=== PATIENT | female | born 1990 | race Caucasian/White ===

== ENCOUNTER → 2018-07-28 | Outpatient (CLI) | payer MEDICAID ==
--- NOTE | 2018-07-28 10:43 | WOMENS IMAGING REPORT ---
EXAM DESCRIPTION: U/S ABDOMEN TOTAL COMPLETED DATE/TIME: 07/28/2018 8:33 am REASON FOR STUDY: R10.11 RIGHT UPPER QUADRANT PAIN R10.11 RIGHT UPPER QUADRANT PAIN COMPARISON: None. TECHNIQUE: Dynamic and static grayscale images acquired of the abdomen and recorded on PACS. Additio nal selected color Doppler and spectral images recorded. Note: Study does not meet criteria for complete doppler/duplex scan LIMITATIONS: None. FINDINGS: PANCREAS: Poorly visualized. LIVER: Increased echogenicity with decreased visualization of the portal triads. No focal lesions. LIVER VASCULATURE: Normal directional flow of the main portal vein and hepatic veins. GALLBLADDER: No stones. Normal wall thickness. No pericholecystic fluid. ULTRASOUND-DETECTED KENNEDY'S SIGN: Negative. INTRAHEPATIC DUCTS AND COMMON DUCT: CBD and intrahepatic ducts normal caliber. No filling defects. INFERIOR VENA CAVA: Visualized aspects are unremarkable. AORTA: Not well visualized. Visualized aspects are unremarkable. RIGHT KIDNEY: Normal size. Normal echogenicity. No solid or suspicious masses. No hydronephros is. No calcifications. LEFT KIDNEY: Normal in size measuring 10.3 cm. Normal echogenicity. No solid or suspicious rhianna s. No hydronephrosis. No calcifications. SPLEEN: Normal in size measuring 8.3 cm. No solid masses. PERITONEAL AND PLEURAL SPACES: No ascites or effusions. OTHER: No other significant finding. IMPRESSION: Hepatic steatosis. Otherwise, unremarkable abdominal ultrasound. TECHNICAL DOCUMENTATION: JOB ID: [id number] [employer]- All Rights Reserved Reading location - IP/workstation name: [email or web address]
== END ==
LOC: WI 07:55
PROVIDERS: ATTEND Physician Assistant
DX: R10.11 Right upper quadrant pain (principal)
CPT/HCPCS: 76700